=== PATIENT | male | born 1960 | race Caucasian/White ===

== ENCOUNTER → 2025-06-22 11:55 | Outpatient (REF) | payer BC, SELFPAY | LOC: RAD 11:55 | PROVIDERS: ATTENDING PHYSICIAN Family Medicine; FAMILY PHYSICIAN Nurse Practitioner Adult Health | DX: M76.62 Achilles tendinitis, left leg (principal); M19.072 Primary osteoarthritis, left ankle and foot; C83.31 Diffuse large B-cell lymphoma, lymph nodes of head, face, and neck | CPT/HCPCS: 73610 ==